=== PATIENT | female | born 1940 | race Caucasian/White ===

== ENCOUNTER → 2017-02-03 | Outpatient (CLI) | payer BC | LOC: FIMAGING 11:02 | PROVIDERS: ATTEND Nurse Practitioner Adult Health | DX: Z12.31 Encounter for screening mammogram for malignant neoplasm of breast (principal) | CPT/HCPCS: G0202 ==

== ENCOUNTER 2017-06-27 12:16 | Emergency (ER) | payer BC ==
--- NOTE | 2017-06-27 13:00 | CPEKG ---
Heart Rate: 69 RR Interval: 870 P-R Interval: 204 QRSD Interval: 112 QT Interval: 416 QTC Interval: 446 P [place]: 56 QRS [place]: 266 T Wave [place]: 66 EKG Severity - ABNORMAL ECG - EKG Impression: SINUS RHYTHM EKG Impression: LEFT ANTERIOR FASCICULAR BLOCK EKG Impression: PROBABLE ANTEROSEPTAL INFARCT, OLD Electronically Signed By: Ryan Cochran 27-Jun-2017 21:26:59
[2017-06-27 13:15] LABS: PLATELET COUNT 239 10^3/uL (150-400)
--- NOTE | 2017-06-27 14:48 | EDPHY ---
H & P Time Seen by Provider: 06/27/17 13:00 HPI/ROS: HPI Upper back pain. 76-year-old female by private vehicle. She has a history of atrial fibrillation and atrial flutter. She is currently on Eliquis. She reports that for the last week she has had left-sided upper back pain. She points to her mid left trapezius body above the scapula. She reports that it got better toward the end of this week but then returned yesterday and was worse in radiated down into the left-sided lateral lower rib area. She reports that it is worse with movement and worse with taking a deep breath. ROS: Constitutional: No fever, no chills. No weakness. Eyes: No discharge. No changes in vision. ENT: No sore throat. No nasal congestion or rhinorrhea. Respiratory: No cough. No shortness of breath. As above. Cardiac: No chest pain, no palpitations. Gastrointestinal: No abdominal pain, no vomiting, no diarrhea. Genitourinary: No hematuria. No dysuria or increased frequency with urination. Musculoskeletal: As above. No neck pain. No myalgias or arthralgias. Skin: No rashes. Neurological: No headache. No focal weakness or altered sensation. Past medical history: Atrial fibrillation. She has had an ablation by Dr. Thomas. She is currently on Eliquis. Social history: Nonsmoker. No alcohol. Here by herself. Physical Exam: General Appearance: Alert, no distress. This patient is responding to questions appropriately and in full sentences. This patient appears well- hydrated and well-nourished. Eyes: Pupils equal and round no pallor or injection. No lid edema, erythema or injection. Respiratory: There are no retractions, lungs are clear to auscultation with good air movement bilaterally. Cardiovascular: Regular rate and rhythm. No murmur appreciated. Gastrointestinal: Abdomen is soft and nontender, no masses, bowel sounds normal. No focal tenderness at McBurney's point. No Valentino sign. Neurological: Motor sensory function is grossly intact. Cranial nerves are normal. Gait is normal. Skin: Warm and dry, no rashes involving her extremity and torso. Musculoskeletal: Neck is supple and nontender. Her pain is reproduced on palpation of the left mid trapezius body just above the scapula. No soft tissue edema, ecchymosis, erythema noted. Extremities are symmetrical. All joints range without pain or impingement. Psychiatric: No agitation. No depression. Database: EKG: EKG time is 12:59 p.m.; EKG shows a narrow complex normal sinus rhythm with a ventricular rate of 69. QS waves noted in V1 and V2. The MD, QRS, QT intervals are within normal limits. There are no ST-T wave changes indicative of ischemic or injury pattern. No evidence of right heart strain. Interpreted by me. Imaging: Chest x-ray PA and lateral; the cardiac mediastinal silhouette is unremarkable. No evidence of infiltrate or pneumothorax. No acute cardiopulmonary disease process noted. Interpreted by me. Procedures: Emergency department course: IV placed. She was placed on a monitor. Vital signs reviewed and are normal. EKG obtained and reviewed by myself. She declines pain medication or muscle relaxer. 3:50 p.m., patient re-evaluated. She is resting comfortably at this time. She has no significant pain. No shortness of breath. I discussed the results of her diagnostic workup, EKG and chest x-ray. I explained that her D-dimer was slightly above normal. I did discussed getting a CT angiogram of her chest. She does not want to do this. She prefers to follow up with her primary care physician on Friday for re-evaluation. I feel this is reasonable. Return to emergency department precautions were thoroughly discussed with her. All of her questions were answered. She was discharged from the emergency department in good condition. Differential Diagnosis: The differential diagnosis on this patient includes but is not limited to musculoskeletal pain. Pulmonary embolism, zoster, acute coronary syndrome, pneumonia, aortic dissection unlikely. This represents a partial list of diagnoses considered. These considerations are based on history, physical exam , past history, reassessment and diagnostic testing. Smoking Status: Never smoked Constitutional: Initial Vital Signs Temperature (C) 36.6 C 06/27/17 12:42 Heart Rate 79 06/27/17 12:42 Respiratory Rate 18 06/27/17 12:42 Blood Pressure 129/71 H 06/27/17 12:42 O2 Sat (%) 94 06/27/17 12:42 O2 Delivery Mode Room Air Allergies/Adverse Reactions: aspirin [Aspirin] Allergy (Mild, Verified 06/27/17 12:41) Home Medications: Medication Instructions Recorded Apixaban [Eliquis] 5 mg PO BID #60 tab 11/11/15 Diltiazem Cd [Cardizem ER Q24hr] 180 mg PO DAILY #30 cap 11/11/15 Propafenone HCl 06/27/17 Medical Decision Making - Diagnostics Imaging Results: Imaging Impressions Chest X-Ray 06/27/17 13:10 Impression: 1. Stable biapical pleural thickening and bibasilar fibrotic streaks. 2. No active cardiopulmonary disease seen. - Data Points Laboratory Results: Laboratory Results 06/27/17 13:05 06/27/17 13:05 06/27/17 06/27/17 06/27/17 13:43 13:05 13:05 WBC RBC Hgb Hct MCV MCH MCHC RDW Plt Count MPV Neut % (Auto) Lymph % (Auto) Villalba % (Auto) Eos % (Auto) Baso % (Auto) Nucleat RBC Rel Count Absolute Neuts (auto) Absolute Lymphs (auto) Absolute Monos (auto) Absolute Eos (auto) Absolute Basos (auto) Absolute Nucleated RBC Immature Gran % Immature Gran # D-Dimer 0.54 ug/mLFEU H ug/mLFEU (0.00-0.50) Sodium 138 mEq/L mEq/L (135-145) Potassium 4.2 mEq/L mEq/L (3.5-5.2) Chloride 101 mEq/L mEq/L (97-110) Carbon Dioxide 29 mEq/l mEq/l (22-31) Anion Gap 8 mEq/L mEq/L (8-16) BUN 12 mg/dL mg/dL (7-23) Creatinine 1.0 mg/dL mg/dL (0.6-1.0) Estimated GFR 54 Glucose 82 mg/dL mg/dL (70-100) Calcium 9.6 mg/dL mg/dL (8.5-10.4) Troponin I < 0.012 ng/mL ng/mL (0.000-0.034) NT-Pro-B Natriuret Pep 155 pg/mL H pg/mL (0-125) 06/27/17 13:05 WBC 6.44 10^3/uL 10^3/uL (3.80-9.50) RBC 4.28 10^6/uL 10^6/uL (4.18-5.33) Hgb 13.1 g/dL g/dL (12.6-16.3) Hct 38.7 % % (38.0-47.0) MCV 90.4 fL fL (81.5-99.8) MCH 30.6 pg pg (27.9-34.1) MCHC 33.9 g/dL g/dL (32.4-36.7) RDW 12.9 % % (11.5-15.2) Plt Count 239 10^3/uL 10^3/uL (150-400) MPV 9.2 fL fL (8.7-11.7) Neut % (Auto) 61.9 % % (39.3-74.2) Lymph % (Auto) 22.4 % % (15.0-45.0) Villalba % (Auto) 12.4 % % (4.5-13.0) Eos % (Auto) 2.6 % % (0.6-7.6) Baso % (Auto) 0.5 % % (0.3-1.7) Nucleat RBC Rel Count 0.0 % % (0.0-0.2) Absolute Neuts (auto) 3.99 10^3/uL 10^3/uL (1.70-6.50) Absolute Lymphs (auto) 1.44 10^3/uL 10^3/uL (1.00-3.00) Absolute Monos (auto) 0.80 10^3/uL 10^3/uL (0.30-0.80) Absolute Eos (auto) 0.17 10^3/uL 10^3/uL (0.03-0.40) Absolute Basos (auto) 0.03 10^3/uL 10^3/uL (0.02-0.10) Absolute Nucleated RBC 0.00 10^3/uL 10^3/uL (0-0.01) Immature Gran % 0.2 % % (0.0-1.1) Immature Gran # 0.01 10^3/uL 10^3/uL (0.00-0.10) D-Dimer Sodium Potassium Chloride Carbon Dioxide Anion Gap BUN Creatinine Estimated GFR Glucose Calcium Troponin I NT-Pro-B Natriuret Pep Departure - Departure Disposition: Home, Routine, Self-Care Clinical Impression: Upper back pain Condition: Good Instructions: Back Pain (ED) Additional Instructions: Read and follow provided instructions. Follow-up with your primary care physician on Friday as discussed for re- evaluation. Return to the emergency department for worsening pain, shortness of breath, chest pain, fever, cough or other serious concerns. Referrals: NONE *PRIMARY CARE P,. [Primary Care Provider] - As per Instructions
[2017-06-27 16:13] VITALS: BP 122/87; PULSE 68; RESP 18; TEMP 98.1; O2SAT 94
== END 2017-06-27 16:13 | disposition home or self-care (01) ==
DX: M54.6 Pain in thoracic spine (principal); Z79.01 Long term (current) use of anticoagulants

== ENCOUNTER → 2017-10-06 | Outpatient (CLI) | payer BC | LOC: BMCIMAGING 13:48 | PROVIDERS: ATTEND Family Medicine | DX: M25.572 Pain in left ankle and joints of left foot (principal); M79.89 Other specified soft tissue disorders ==

== ENCOUNTER → 2018-02-05 | Outpatient (CLI) | payer BC | LOC: FIMAGING 10:14 | DX: Z12.31 Encounter for screening mammogram for malignant neoplasm of breast (principal) ==